=== PATIENT | female | born 1970 | race Caucasian/White ===

== ENCOUNTER 2020-04-28 13:51 | Outpatient (CLI) | payer BC, SELFPAY ==
--- NOTE | ~2020-04-28 | MM_ITS ---
EXAMINATION: MM screening padilla BI w farideh HISTORY: Screening mammogram TECHNIQUE: Craniocaudal and mediolateral oblique 3-D tomosynthesis images were obtained and synthetic 2-D images were generated. CAD analysis was submitted and interpreted. COMPARISON: 04/23/2019 bilateral digital screening mammogram 12/20/2017 diagnostic right digital mammogram 12/14/2017, 12/11/2016 bilateral digital screening mammogram examinations BREAST PARENCHYMAL COMPOSITION: There are scattered areas of fibroglandular density. FINDINGS: There is no evidence of suspicious mass, calcification, or architectural distortion to sugg est malignancy in either breast. There has been no suspicious interval change. IMPRESSION: 1. No mammographic evidence of malignancy. 2. Recommend routine screening mammography in one year. BI-RADS Category 1: Negative Reviewed, dictated and finalized at location A.
== END 2020-04-28 13:52 | disposition home or self-care (01) ==
LOC: ANHIMG 14:01
PROVIDERS: PCP Internal Medicine
DX: Z12.31 Encounter for screening mammogram for malignant neoplasm of breast (principal)
CPT/HCPCS: 77063; 77067

== ENCOUNTER 2022-04-28 13:33 | Observation (INO) | payer BC, SELFPAY ==
[2022-04-28] VITALS (11 sets, daily range): BP systolic 124–154; BP diastolic 71–92; PULSE 63–88; RESP 16–20; TEMP 36.4–37; O2SAT 98–100; BMI 39.6
[2022-04-28 14:00] LABS: Basophils Absolute Auto 0.1 K/mm3 (0.0-0.1); Basophils Percent Auto 1.2 % (0.2-1.2); Eosinophils Absolute Auto 0.3 K/mm3 (0-0.3); Eosinophils Percent Auto 3.2 % (0-4.4); Hematocrit 27.2 % (37.0-47.0); Immature Granulocyte Absolute 0.06 K/mm3 (0.00-0.031); Immature Granulocyte Percent A 0.8 % (0-0.5); Lymphocytes Absolute Auto 2.16 K/mm3 (0.9-3.2); Lymphocytes Percent Auto 27.8 % (18.3-44.2); Mean Corpuscular HGB Conc 25.4 g/dl (32-36); Mean Corpuscular Hemoglobin 18.4 pg (26-34); Mean Corpuscular Volume 72.5 fl (80-100); Monocytes Absolute Auto 0.9 K/mm3 (0.1-0.6); Neutrophils Absolute Auto 4.4 K/mm3 (1.3-6.7); Nucleated Red Blood Cells Perc 0.4 % (0.0-0.2); Platelet Count Result 608 k/mm3 (150-375); Red Blood Count 3.75 M/mm3 (4.2-5.4); Red Cell Distribution Width 23.2 % (11.5-14.5); White Blood Count 7.8 K/mm3 (4.5-10.0)
[2022-04-28 14:09] LABS: Hemoglobin 6.9 g/dL (12.0-15.0)
[2022-04-28 14:22] LABS: Partial Thromboplastin Time 24.7 SECONDS (22.3-36.8); Prothrombin Time 13.2 Seconds (11.1-14.7)
[2022-04-28 14:24] LABS: Alanine Aminotransferase 22 U/L (6-35); Albumin Level 4.6 g/dL (3.5-5.1); Alkaline Phosphatase 101 U/L (38-126); Anion Gap 14 mmol/L (8-16); Aspartate Amino Transferase 30 U/L (14-36); Bilirubin,Total 0.5 mg/dL (0.2-1.3); Blood Urea Nitrogen 9 mg/dL (7-17); Calcium 9.7 mg/dL (8.4-10.2); Carbon Dioxide 22 mmol/L (22-30); Chloride 98 mmol/L (98-107); Estimated CRCL calculation 90 ml/min; Estimated Glomerular Filt Rate > 60; Glucose 114 mg/dL (65-110); Potassium 3.4 mmol/L (3.4-5.0); Sodium 134 mmol/L (137-145)
[2022-04-28 14:27] LABS: Large Platelets Present; Platelet Estimate Increased (Adequate)
[2022-04-28 14:31] LABS: Anisocytosis 2+ (NORMAL); Microcytosis 1+ (NORMAL)
[2022-04-28 14:32] LABS: Hypochromasia 2+ (NORMAL); Macrocytosis 1+ (NORMAL); Stomatocytes 2+ (NORMAL)
--- NOTE | 2022-04-28 14:45 | ECG_ITS ---
Measurements Intervals [place] Rate: 77 P: -5 OK: 150 QRS: -23 QRSD: 86 T: 5 QT: 396 QTc: 448 Interpretive Statements SINUS RHYTHM INCOMPLETE RIGHT BUNDLE BRANCH BLOCK LOW QRS VOLTAGE IN PRECORDIAL LEADS BORDERLINE T WAVE ABNORMALITY- ANT/INF LEADS BASELINE ARTIFACT- I, II, III, AVR, AVL, AVF, V4-V6 BORDERLINE ECG NO PREVIOUS ECG AVAILABLE FOR COMPARISON Electronically Signed On 04-28-2022 21:26:19 CDT by Eyad Oconnor D.O.
[2022-04-28 15:04] LABS: Magnesium 1.9 mg/dL (1.6-2.3)
--- NOTE | 2022-04-28 15:05 | ED.RECABL ---
HPI - Recheck/Abnormal Lab/Rx General Chief Complaint: Recheck/Abnormal Lab/Rx Stated Complaint: LOW HEMOGLOBIN Time Seen by Provider: 04/28/22 14:28 Source: patient and RN notes reviewed Mode of arrival: ambulatory Limitations: no limitations History of Present Illness HPI narrative: This is a 52 year old female with history of anemia who presents for evaluation of low hemoglobin. She reports several years ago she had heavy menses and she required blood transfusion due to anemia. She was evaluated by lithographer apprentice and oncology. She was told she has iron deficiency and she had a procedure to stop her menstrual cycle. She states she has not had a period in 2 years. SHe had outpatien labs ordered in January for palpitations and shortness of breath, but she did not get labs done until 3 days ago. Her hemoglobin 3 days ago was 6.9 so she came to ER for reassessment. She denies any melena, rectal bleeding, epistaxis, abnormal bruising. She has generalized weakness. Related Data Allergies Allergy/AdvReac Type Severity Reaction Status Date / Time iohexol Allergy Hives Verified 04/28/22 13:34 [From contrast - CT, X-RAY] Review of Systems Review of Systems: All systems reviewed & are unremarkable except as noted in HPI and below Constitutional: Constitutional: Denies chills, Reports fatigue and Denies fever(s) Cardiovascular: Cardiovascular: Denies chest pain and Reports rapid heart rate Respiratory: Respiratory: Denies chest congestion, Denies cough and Reports dyspnea Gastrointestinal: Gastrointestinal: Reports abdominal pain, Reports nausea and Reports vomiting Musculoskeletal: Musculoskeletal: Denies back pain Neurologic: Reports weakness PMFSH Past Medical History Medical History (Updated 04/28/22 @ 17:38 by Marylou Keen MD) Anemia Hypertension Surgical History Surgical History (Updated 04/28/22 @ 17:00 by Maia Sierra NP) H/O section x 3 H/O hernia repair History of laparoscopic cholecystectomy History of removal of pigmented skin lesion History of tonsillectomy and adenoidectomy Family History Family History (Updated 04/28/22 @ 17:00 by Maia Sierra NP) Father Heart disease Hypertension Kidney disease Social History Social History (Updated 04/28/22 @ 17:01 by Maia Sierra NP) Social History: maried 3 c mj drink Smoking status: Never smoker Exam Const: General: alert Nutritional Appearance: well nourished and obese Orientation/consciousness: patient oriented x3 Limitations: no limitations HENMT: Face and sinus: normal facial exam Teeth and gingiva: dentition normal Chest: Chest palpation & inspection: normal inspection of the chest Resp: Effort & Inspection: normal respiratory effort Auscultation: clear to auscultation bilaterally Cardio: Rate: regular rate Rhythm: regular rhythm GI: GI Palp: Yes Soft to palpation, No Tenderness to palpation present (GI) and No Guarding due to palpation present (GI) Auscultation: normal bowel sounds Other: heme negative stool Back/Spine/Pelvis: Back: no CVA tenderness Skin: General skin exam: pallor Wounds: no wounds Neuro: General: patient oriented x3, moves all extremities and CN's II-XI intact bilaterally Extrem: General: normal to inspection Psych: Mental Status: mental status grossly normal Affect: normal affect Attitude: cooperative Course Reevaluation(s) Reevaluation #1: PAtient presents with symptomatic anemia. No active bleeding found. I Discussed with hospitalist who agrees to consult. Date: 04/28/22 Time: 15:00 Vital Signs Vital signs: Vital Signs Temperature 97.5 F L 04/28/22 13:35 Pulse Rate 88 04/28/22 13:35 Respiratory Rate 16 04/28/22 13:35 Blood Pressure 154/92 H 04/28/22 13:35 Pulse Oximetry 100 04/28/22 13:35 Oxygen Delivery Room Air 04/28/22 13:35 Temperature 97.5 F L 04/28/22 13:35 Pulse Rate 75 04/28/22 17:26 Respiratory Rate 1
[2022-04-28 15:11] LABS: Iron 18 ug/dL (37-170)
[2022-04-28 15:13] LABS: NT Pro B Type Natriuretic Pept 117 pg/mL (5-100)
[2022-04-28 15:14] LABS: Troponin I < 0.012 ng/mL (0.000-0.034)
[2022-04-28 15:20] LABS: Percent Iron Saturation 3 % (20-50)
[2022-04-28 16:11] LABS: Folic Acid 8.9 ng/mL (2.76->20)
[2022-04-28 16:44] LABS: SARS-CoV-2 RNA PCR Negative
--- NOTE | 2022-04-28 16:58 | PM.IMHP ---
H&P: HPI History of Present Illness Date/Time: 04/28/22 16:58 Chief Complaint: Low hemoglobin Narrative: This is a 52-year-old female patient who has a history of having iron deficiency anemia. The patient stated she has not been taking her iron supplements daily. The patient stated that many years ago she had heavy menses and she required a blood transfusion due to the anemia. She was evaluated by Gynecology and Oncology in the past. The patient recently started taking her iron pills as of yesterday. The patient did go to her primary care doctor and had labs ordered back in January but it did not get them performed. She was complaining of shortness of breath and palpitations at this point. She did have her labs performed about 3 days ago. Her hemoglobin 3 days ago was 6.9 so she came to ER for review. She denies any melena rectal bleeding epistaxis or abnormal bruising. She does have generalized weakness. The patient was given IV Tylenol and IV fluids in the emergency room. She is being admitted to observation status on the date of service of 04/28/2022. Review of Systems Review of Systems: See HPI All systems reviewed & are unremarkable except as noted in HPI and below Constitutional: Constitutional: Reports as per HPI and Reports no additional constitutional complaints Eyes: Eyes: Reports as per HPI and Reports no additional eye complaints ENT: Reports system reviewed and no additional complaints, except as documented and Reports Normal hearing present Cardiovascular: Cardiovascular: Reports no additional cardiovascular complaints Respiratory: Respiratory: Reports no additional respiratory complaints and Reports no additional respiratory complaints Gastrointestinal: Gastrointestinal: Reports as per HPI and Reports no additional gastrointestinal complaints Musculoskeletal: Musculoskeletal: Reports no additional musculoskeletal complaints Integumentary/Breasts: Skin/Breast: Reports system reviewed and no additional complaints, except as docu and Reports as per HPI Neurologic: Reports system reviewed and no additional complaints, except as documented, Reports as per HPI and Reports Normal hearing present Psychiatric: Psychiatric: Reports no additional psychiatric complaints and Reports as per HPI Endocrine: Endocrine: Reports no additional endocrine complaints Hematologic/Lymphatic: Hematologic/Lymphatic: Reports no additional hematologic/lymphatic complaints Allergic/Immunologic: Allergic/Immunologic: Reports no additional allergic/immunologic complaints [facility] Past Medical History Medical History Anemia Depression with anxiety Hypertension Surgical History Surgical History H/O section x 3 H/O hernia repair History of laparoscopic cholecystectomy History of removal of pigmented skin lesion History of tonsillectomy and adenoidectomy Family History Family History Father Heart disease Hypertension Kidney disease Social History Social History (Updated 04/28/22 @ 19:06 by Maia Sierra NP) Social History: The patient is with 3 children. She does occasionally use marijuana and occasionally drinks alcohol but is a lifelong nonsmoker. She is not employed at this time. Her is her durable power state's attorney for healthcare. Code status full code Smoking status: Never smoker Alcohol intake: current Drinks per week: 20 Substance use: current Substance use type: marijuana Last use: 04/27/22 Spiritual care concerns: No Meds Home Medications and Allergies Home Medications Medication Instructions Recorded Confirmed Type citalopram 40 mg tablet 40 mg PO DAILY 04/28/22 04/28/22 History cyclobenzaprine 5 mg tablet 5 mg PO DAILY PRN Muscle Spasm 04/28/22 04/28/22 History hydrochlorothiazide 25 mg tab
--- NOTE | 2022-04-28 17:49 | PC.NURSE ---
This patient, Carlee Augustin, was admitted to Medical Room 261-01. Patient/family oriented to hospital policies and general routines including ID bracelet, bed and alarms, visiting hours, pain management, procedures, bathroom and other care routines, personal items, smoking policy, room service/diet, and visiting hours. Information on how to activate the Rapid Response Team has been discussed. Patient/Family are encouraged to report perceived risks to care and to ask questions if they do not understand what they are told or what they should do.
[2022-04-28] MEDS: SODIUM CHLORIDE 0.9% IV 250 ML 30 ML IV CONT (18:00)
[2022-04-28 20:47] LABS: Bilirubin,Total 0.4 mg/dL (0.2-1.3); Lactate Dehydrogenase 222 U/L (120-246)
[2022-04-28 20:55] LABS: Transferrin 467 mg/dL (206-381)
[2022-04-28 21:23] LABS: Ferritin 3.63 ng/mL (11.1-264)
[2022-04-28] MEDS: IRON SUCROSE COMPLEX 100 MG in SODIUM CHLORIDE 0.9% IV 50 ML 220 MG IVPB (22:26)
[2022-04-28 23:56] LABS: Appearance Urine Clear (Clear); Bilirubin Urine Negative (Negative); Blood Urine Negative (Negative); Color Urine Yellow (Yellow); Glucose Urine UA Negative (Negative); Ketones Urine Negative (Negative); Leukocyte Esterase Ur Negative LEU/UL (NEGATIVE); Nitrate Urine Negative (Negative); Protein Urine Negative (Negative); Specific Grav Ur <= 1.005 (1.001-1.035); Urobilinogen Urine 0.2 mg/dL (<2.0)
[2022-04-28 23:58] LABS: Add Urine Microscopic? NO
[2022-04-29 00:38] VITALS: BP 127/82; PULSE 72; RESP 16; TEMP 36.6; O2SAT 98
[2022-04-29] MEDS: CYCLOBENZAPRINE HCL 5 MG TABLET PO (01:01)
[2022-04-29 01:38] VITALS: BP 149/92; PULSE 66; RESP 16; TEMP 36.9; O2SAT 100
[2022-04-29 02:15] VITALS: BP 137/83; PULSE 74; RESP 16; TEMP 36.4; O2SAT 97
[2022-04-29] MEDS: MELATONIN 5 MG TABLET 10 MG PO ×2 (02:34→22:41)
[2022-04-29 05:53] LABS: Basophils Absolute Auto 0.1 K/mm3 (0.0-0.1); Basophils Percent Auto 1.2 % (0.2-1.2); Eosinophils Absolute Auto 0.3 K/mm3 (0-0.3); Eosinophils Percent Auto 4.1 % (0-4.4); Hematocrit 31.9 % (37.0-47.0); Hemoglobin 8.9 g/dL (12.0-15.0); Immature Granulocyte Absolute 0.05 K/mm3 (0.00-0.031); Immature Granulocyte Percent A 0.6 % (0-0.5); Immature Reticulocyte Fraction 43.9 % (3.0-15.9); Lymphocytes Absolute Auto 2.24 K/mm3 (0.9-3.2); Lymphocytes Percent Auto 28.8 % (18.3-44.2); Mean Corpuscular HGB Conc 27.9 g/dl (32-36); Mean Corpuscular Hemoglobin 20.3 pg (26-34); Mean Corpuscular Volume 72.8 fl (80-100); Monocytes Absolute Auto 0.9 K/mm3 (0.1-0.6); Monocytes Percent Auto 11.8 % (2.6-8.5); Neutrophils Absolute Auto 4.2 K/mm3 (1.3-6.7); Neutrophils Percent Auto 53.5 % (45.5-73.1); Nucleated Red Blood Cells Absolute Auto 0.1 K/mm3 (0.0-0.012); Nucleated Red Blood Cells Perc 0.6 % (0.0-0.2); Platelet Count Result 609 k/mm3 (150-375); Red Blood Count 4.38 M/mm3 (4.2-5.4); Red Cell Distribution Width 22.6 % (11.5-14.5); Reticulocyte Hemoglobin Conten 16.7 pg (28.2-35.7); Reticulocyte Percent 1.37 % (0.7-4.3); Reticulocytes Absolute 0.06 B/L (32.2-175.7); White Blood Count 7.8 K/mm3 (4.5-10.0)
[2022-04-29 06:00] VITALS: BP 148/83; PULSE 72; RESP 20; TEMP 36.6; O2SAT 98
[2022-04-29 06:07] LABS: Lactic Acid Reflex 0.7 mmol/L (0.7-2.0)
[2022-04-29 06:14] LABS: Alanine Aminotransferase 19 U/L (6-35); Albumin Level 4.5 g/dL (3.5-5.1); Alkaline Phosphatase 85 U/L (38-126); Anion Gap 13 mmol/L (8-16); Aspartate Amino Transferase 26 U/L (14-36); Bilirubin,Total 2.2 mg/dL (0.2-1.3); Blood Urea Nitrogen 7 mg/dL (7-17); CRP 0.6 mg/dL (<1.0); Calcium 9.1 mg/dL (8.4-10.2); Carbon Dioxide 27 mmol/L (22-30); Chloride 97 mmol/L (98-107); Estimated CRCL calculation 101 ml/min; Estimated Glomerular Filt Rate > 60; Glucose 93 mg/dL (65-110); Magnesium 2.1 mg/dL (1.6-2.3); Potassium 2.9 mmol/L (3.4-5.0); Sodium 137 mmol/L (137-145)
[2022-04-29 07:19] LABS: Anisocytosis 2+ (NORMAL); Hypochromasia 1+ (NORMAL); Platelet Estimate Increased (Adequate); Poikilocytosis 1+ (NORMAL)
[2022-04-29] MEDS: IRON SUCROSE COMPLEX 200 MG in SODIUM CHLORIDE 0.9% IV 50 ML 120 MG IVPB (08:30)
[2022-04-29] MEDS: FERROUS SULFATE 324 MG TABLET PO ×2 (08:31→17:52)
[2022-04-29] MEDS: POTASSIUM CHLORIDE 20 MEQ TABLET 40 MEQ PO (08:31)
[2022-04-29] MEDS: CITALOPRAM HYDROBROMIDE 20 MG TABLET 40 MG PO (08:32)
[2022-04-29] MEDS: LOSARTAN POTASSIUM 100 MG TABLET PO (08:33)
[2022-04-29] MEDS: POTASSIUM CHLORIDE INJ 40 MEQ in SODIUM CHLORIDE 0.9% IV 500 ML 130 MEQ IVPB (09:46)
--- NOTE | 2022-04-29 12:15 | PM.IMPN ---
Progress Note: A&P Assessment and Plan (1) Iron deficiency anemia: Code(s): D50.9 - Iron deficiency anemia, unspecified Status: Acute Assessment and Plan: -Hemoglobin is 6.9 hematocrit 27.2 upon admission and symptomatic with shortness of breath and weakness -iron infusion repeated one more time -p.o. Iron switched to 324mg BID -hematology consult greatly be appreciated. -H&H Q6H hours. -type and crossmatch and infuse 1 unit of blood 04/28/22. -anemia panel Iron 18, TIBC 623, % sat 3, Transferrin 467, Ferritin 3.63, B12 376, Folate 8.9 -check stool for occult blood. (2) Thrombocythemia: Code(s): D75.839 - Thrombocytosis, unspecified Status: Acute Assessment and Plan: Plt 609 today Could be related to low iron, related to anemia Iron is 18 and ferritin is 3.63 Get LDH and ESR to rule out inflammatory causes Continue to trend labs Hematology on board (3) Hypokalemia: Code(s): E87.6 - Hypokalemia Status: Acute Assessment and Plan: - K today was 2.9 - 40mcg PO and 40mcg IV - Repeat potassium one post infusion - Supplement as indicated - trend labs - Adjust therapy as indicated - Hold HCTZ at this time as this could be contributing to her potassium loss, probably need to decrease to 12.5 (4) Hypertension: Code(s): I10 - Essential (primary) hypertension Status: Acute Assessment and Plan: -BP 148/83 -Continue losartan 100mg PO daily -Hold HCTZ for now -Trend blood pressure -Adjust therapy as indicated (5) Depression with anxiety: Code(s): F41.8 - Other specified anxiety disorders Status: Acute Assessment and Plan: -continue with citalopram -Add Xanax for significant night anxiety Time Spent With Patient Time with patient: Greater than 35 minutes Subjective Date/time seen: 04/29/22 12:15 Interval history: 04/29/22 1215 Patient states she is doing okay today. She is having some watery diarrhea. She stated that it is darker than normal however she denies having red, maroon, black diarrhea. She denies any chest pain or shortness of breath. She did state that she was very anxious and that she feels like she is going to jump out of her skin. She has been get up and down and walking to the bathroom. 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 K was 2.9 today. Seems that [facility]. Will hold that for now. 04/28/22? 16:58 This is a 52-year-old female patient who has a history of having iron deficiency anemia.? The patient stated she has not been taking her iron supplements daily.? The patient stated that many years ago she had heavy menses and she required a blood transfusion due to the anemia.? She was evaluated by Gynecology and Oncology in the past.? The patient recently started taking her iron pills as of yesterday.? The patient did go to her primary care doctor and had labs ordered back in January but it did not get them performed.? She was complaining of shortness of breath and palpitations at this point.? She did have her labs performed about 3 days ago.? Her hemoglobin 3 days ago was 6.9 so she came to ER for review.? She denies any melena rectal bleeding epistaxis or abnormal bruising.? She does have generalized weakness.? The patient was given IV Tylenol and IV fluids in the emergency room.? She is being admitted to observation status on the date of service of 04/28/2022. Review of Systems Review of Systems: All systems reviewed & are unremarkable except as noted in HPI and below Exam Const: General: cooperative, healthy appearing, comfortable, no acute distress, well developed, alert, awake and Physically active Nutritional Appearance: average body habitus and well nourished Orientation/consciousness: oriented to person, oriented to place, oriented to time and pat
[2022-04-29 13:42] LABS: Hematocrit 31.2 % (37.0-47.0); Hemoglobin 8.7 g/dL (12.0-15.0)
[2022-04-29 14:31] VITALS: BP 127/67; PULSE 78; RESP 18; TEMP 36.4; O2SAT 97
[2022-04-29 15:40] LABS: IFOB Positive Control Positive; Immunochemical Fecal Occult Bl Negative (N)
[2022-04-29 15:57] LABS: Potassium 4.5 mmol/L (3.4-5.0)
[2022-04-29 19:28] VITALS: BP 143/84; PULSE 73; RESP 18; TEMP 36.6; O2SAT 98
[2022-04-30 05:29] LABS: Basophils Absolute Auto 0.1 K/mm3 (0.0-0.1); Basophils Percent Auto 1.4 % (0.2-1.2); Eosinophils Absolute Auto 0.3 K/mm3 (0-0.3); Eosinophils Percent Auto 3.9 % (0-4.4); Hematocrit 31.1 % (37.0-47.0); Hemoglobin 8.3 g/dL (12.0-15.0); Immature Granulocyte Absolute 0.05 K/mm3 (0.00-0.031); Immature Granulocyte Percent A 0.6 % (0-0.5); Lymphocytes Absolute Auto 2.47 K/mm3 (0.9-3.2); Lymphocytes Percent Auto 31.5 % (18.3-44.2); Mean Corpuscular HGB Conc 26.7 g/dl (32-36); Mean Corpuscular Volume 75.1 fl (80-100); Monocytes Percent Auto 12.1 % (2.6-8.5); Neutrophils Percent Auto 50.5 % (45.5-73.1); Nucleated Red Blood Cells Perc 0.3 % (0.0-0.2); Platelet Count Result 655 k/mm3 (150-375); Red Blood Count 4.14 M/mm3 (4.2-5.4); Red Cell Distribution Width 22.9 % (11.5-14.5); White Blood Count 7.9 K/mm3 (4.5-10.0)
[2022-04-30 05:39] LABS: Alanine Aminotransferase 17 U/L (6-35); Albumin Level 3.7 g/dL (3.5-5.1); Alkaline Phosphatase 71 U/L (38-126); Anion Gap 10 mmol/L (8-16); Aspartate Amino Transferase 23 U/L (14-36); Bilirubin,Total 0.4 mg/dL (0.2-1.3); Blood Urea Nitrogen 7 mg/dL (7-17); Calcium 8.5 mg/dL (8.4-10.2); Carbon Dioxide 27 mmol/L (22-30); Chloride 103 mmol/L (98-107); Estimated CRCL calculation 101 ml/min; Estimated Glomerular Filt Rate > 60; Glucose 93 mg/dL (65-110); Magnesium 2.2 mg/dL (1.6-2.3); Potassium 3.8 mmol/L (3.4-5.0); Sodium 140 mmol/L (137-145)
[2022-04-30 05:48] VITALS: BP 128/67; PULSE 65; RESP 18; TEMP 36.8; O2SAT 99
[2022-04-30] MEDS: LOSARTAN POTASSIUM 100 MG TABLET PO (08:17)
[2022-04-30] MEDS: CITALOPRAM HYDROBROMIDE 20 MG TABLET 40 MG PO (08:17)
[2022-04-30] MEDS: FERROUS SULFATE 324 MG TABLET PO (08:17)
[2022-04-30 09:13] LABS: Erythrocyte Sedimentation Rate 12 mm/hr (0-20)
--- NOTE | 2022-04-30 09:30 | PM.DS ---
DS: Admitting Diagnosis Discharge Date 04/30/22929 Admitting Diagnosis Iron deficiency anemia DS: Summary Hospital Course Hospital Course: Patient is a 52-year-old female with past medical history of hypertension, iron deficiency anemia, anxiety and depression who presented to the ED with complaints of low hemoglobin. She recently had labs done and her hemoglobin was 6.9. She denied any melena or abnormal bleeding. Patient has chronic iron deficiency and had stopped taking her iron supplementation at home. Upon arrival to the ED hemoglobin was 6.9 with hematocrit of 27.2. Patient was symptomatic with shortness of breath and weakness. Patient received iron infusions x2 and p.o. iron was continued. Hemoglobin hematocrit had been on trend every 6 hours. Patient was given 1 unit of blood and hemoglobin and hematocrit increased and is currently 8.3/31.1. Occult blood and was negative. Anemia panel did show an iron of 18, % saturation of 3, TIBC 623, transferrin 467, ferritin 3.63, B12 376, folate 8.9. Patient is also noted to have an elevated platelet count that is in the 600s. Currently a platelet count of 655. LDH and ESR were normal. Patient was also noted to have low potassium of 2.9. Potassium supplementation was given. Patient is at risk for hypokalemia due to hydrochlorothiazide. Blood pressures have been on trend and monitored. Currently patient is stable and is ready to go home. She denies any chest pain, shortness of breath, nausea, vomiting, diarrhea, constipation, weakness or fatigue. Hematology has been consulted however will have patient follow up outpatient. Patient is stable for discharge for labs and vital signs at this time. Education has been given about close follow-up. Case review with Dr. Whitten, who suggested discontinuing HCTZ and iron daily Status at Discharge Functional status at discharge: independent ambulation Overall status at discharge: patient is progressing back to baseline Time Spent with Patient Time attestation: Total time spent providing and/or coordinating discharge services: 36 minutes Time spent: Greater than 30 minutes Specific discharge activities: Diagnostic testing, chart review, developing a treatment plan, education, care coordination documentation, physical exam, result review Exam Narrative: Const:?? General: cooperati ve, healthy appear ing, comfortable, no acute distress, well developed, a lert, awake and Ph ysically active? N utritional Appeara nce: average body habitus and well n ourished? Orientat ion/consciousness: oriented to perso n, oriented to idania ce, oriented to ti me and patient saul ented x3? Limitati ons: no limitation s HENMT:?? Head: normal to in spection, No palpa ble skull fracture present, normocep halic and atraumat ic? Ears: hearing grossly normal toribio aterally and exter nal ears normal? G eneral nose exam: Normal external no se present and Nor mal nares present Eyes:?? General: appearanc e normal, both eye s and all related structures? Alignm ent and Position: alignment normal? Periorbital: perio rbital findings no rmal? Eyelids: eye lids normal? Scl
[2022-05-02 20:03] LABS: Haptoglobin 149 mg/dL (43-212)
[2022-05-02 20:04] LABS: Albumin 3.8 g/dL (3.8-4.8); Alpha 1 Globulin 0.4 g/dL (0.2-0.3); Alpha 2 Globulin 0.7 g/dL (0.5-0.9); Beta 1 Globulin 0.6 g/dL (0.4-0.6); Gamma Globulin 0.9 g/dL (0.8-1.7); Protein, Total 6.7 g/dL (6.1-8.1)
[2022-05-03 17:19] LABS: Soluble Transferrin Receptor 6.28 mg/L (0.76-1.76)
== END 2022-04-30 13:22 | disposition home or self-care (01) ==
LOC: ANHED 14:56 → ANH2MED 17:38
PROVIDERS: Emergency Medicine; Internal Medicine; Nurse Practitioner; Admitting Provider Internal Medicine; Emergency Provider General Practice; PCP Internal Medicine; Visit Provider Nurse Practitioner
DX: D50.9 Iron deficiency anemia, unspecified (principal); D75.839 Thrombocytosis, unspecified; E87.6 Hypokalemia; I10 Essential (primary) hypertension; F41.8 Other specified anxiety disorders; R10.9 Unspecified abdominal pain; R19.7 Diarrhea, unspecified; I45.10 Unspecified right bundle-branch block; R11.2 Nausea with vomiting, unspecified; R06.02 Shortness of breath; Z20.822 Contact with and (suspected) exposure to COVID-19; F12.90 Cannabis use, unspecified, uncomplicated; Z72.89 Other problems related to lifestyle; Z79.899 Other long term (current) drug therapy; Z82.49 Family history of ischemic heart disease and other diseases of the circulatory system
CPT/HCPCS: 36415; 36430; 80053; 81003; 82247; 82248; 82274; 82570; 82607; 82728; 82746; 83010; 83540; 83550; 83605; 83615; 83735; 83880; 84132; 84155; 84156; 84165; 84166; 84238; 84443; 84466; 84484; 85014; 85018; 85025; 85046; 85610; 85652; 85730; 86140; 86850; 86880; 86900; 86901; 86902; 86922; 93005; 96365; 96366; 96367; 99285; A9270; C9803; G0378; J1756; J3480; J7040; J7050; P9016; U0003; U0005

== ENCOUNTER 2022-05-31 08:52 | Outpatient (CLI) | payer BC, SELFPAY ==
--- NOTE | ~2022-05-31 | MM_ITS ---
EXAMINATION: MM screening padilla BI w farideh HISTORY: Screening TECHNIQUE: Craniocaudal and mediolateral oblique 3-D tomosynthesis images were obtained and synthetic 2-D images were generated. CAD analysis was submitted and interpreted. COMPARISON: Comparison to multiple prior studies sequentially, with oldest reviewed study dated 03/2016. BREAST PARENCHYMAL COMPOSITION: The breasts are almost entirely fatty. FINDINGS: There is no evidence of suspicious mass, calcification, or architectural distortion to sugg est malignancy in either breast. There has been no suspicious interval change. IMPRESSION: 1. No mammographic evidence of malignancy. 2. Recommend routine screening mammography in one year. Reviewed, dictated and finalized at location A.
== END 2022-05-31 08:53 | disposition home or self-care (01) ==
PROVIDERS: PCP Internal Medicine; Visit Provider Internal Medicine
DX: Z12.31 Encounter for screening mammogram for malignant neoplasm of breast (principal)
CPT/HCPCS: 77063; 77067

== ENCOUNTER 2023-12-24 13:14 | Outpatient (CLI) | payer BC, SELFPAY ==
--- NOTE | ~2023-12-24 | MM_ITS ---
EXAMINATION: MM screening padilla BI w farideh HISTORY: Screening mammogram TECHNIQUE: Craniocaudal and mediolateral oblique 3-D tomosynthesis images were obtained and synthetic 2-D images were generated. CAD analysis was submitted and interpreted. COMPARISON: 05/31/2022, 04/28/2020 bilateral screening mammogram examinations BREAST PARENCHYMAL COMPOSITION: The breasts are almost entirely fatty. FINDINGS: There is no evidence of suspicious mass, calcification, or architectural distortion to sugg est malignancy in either breast. There has been no suspicious interval change. IMPRESSION: 1. No mammographic evidence of malignancy. 2. Recommend routine screening mammography in one year. BI-RADS Category 1: Negative Reviewed, dictated and finalized at location A.
== END 2023-12-24 13:15 ==
LOC: MICIMG 13:15
DX: Z12.31 Encounter for screening mammogram for malignant neoplasm of breast (principal)
CPT/HCPCS: 77063; 77067

== ENCOUNTER 2024-07-11 08:49 | Outpatient (CLI) | payer BC, SELFPAY ==
--- NOTE | ~2024-07-11 | MR_ITS ---
EXAMINATION: MR ankle LT wo con DATE: 07/11/2024 09:16 INDICATION: Left ankle pain TECHNIQUE: Magnetic resonance imaging (MRI) of the left ankle was performed without intravenous contr ast. Sequences included sagittal, coronal, and axial proton-density weighted fast spin echo without a nd with fat saturation. COMPARISON: None. FINDINGS: Medial ankle ligaments: There is loss of the normally: Delineated striated pattern of the deep deltoid ligament which appears thickened with more amorphous intermediate signal consistent with chronic scarring related to chroni c sprain. There is mild hypertrophic change along the inferolateral margin of the medial malleolus wh ich suggests chronic healing response to periosteal stripping along the tibial origin of the superfic ial deltoid ligament related to chronic sprain. The superficial deltoid ligament and superomedial com ponent of the spring ligament complex is markedly thickened consistent with scarring related to chron ic sprain. There is mild edema overlying the superficial deltoid ligament which suggests recent recur rent sprain. Lateral ankle ligaments: The anterior and posterior inferior tibiofibular ligaments and the posterior talofibular ligament are normal. Chronic high-grade sprain of the anterior talofibular ligament which appears attenuated and frayed along the fibular side of the ligament which appears detached from its anterior lateral malleo lar attachment. Similarly there is a chronic tear of the fibular side of the calcaneofibular ligament which similarly appears attenuated and lax. Tendons: Moderate tendinosis of the distal Achilles tendon without tear and with small enthesopathic ossicle a t its lateral calcaneal insertion. The peroneus longus and brevis tendons are normal. The tibialis an terior and extensor hallucis longus and extensor digitorum longus tendons are normal. The tibialis po sterior, flexor digitorum longus and flexor hallucis longus tendons are normal. Plantar fascia: Plantar aponeurosis is normal. Bones/other: The foot is rotated towards and with inversion which may be positional. No traumatic malalignment. Mi ld peripheral edema along the medial malleolus likely related to the suspected recent medial ankle sp rain. Marrow signal is otherwise unremarkable with no fracture or pathologic marrow replacing process . Mild osteoarthritis at the ankle and at the tarsal metatarsal joints. Fluid: Small tibiotalar and subtalar joint effusions with small amount of fluid correlating in the anterior recess of the ankle joint and in the recess anterior to the posterior facet of the subtalar joint. Sm all amount of fluid within a ganglion cyst arising from the dorsolateral aspect of the talonavicular joint. Small amount of fluid consistent with mild bursitis at the retrocalcaneal bursa consistent wit h mild bursitis. IMPRESSION: 1. Mild soft tissue edema and marrow edema along the margin of the medial malleolus with prominent sc arring of the deep and superficial deltoid ligament and superomedial component of the spring ligament complex consistent with likely acute on recurrent chronic medial ankle sprain. 2. Chronic high-grade partial if not complete tears of the anterior talofibular and calcaneofibular l igaments. 3. Moderate distal Achilles tendinosis without tear and with mild underlying retrocalcaneal bursitis. 4. Mild osteoarthritis at the ankle and tarsal metatarsal joints. Reviewed, dictated and finalized at location A. 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 Mild soft tissue edema and marrow edema along the margin of the medial malle olus with prominent scarring of the deep and superficial deltoid ligament and s uperomedial component of the spring ligament complex consistent with likely acu te on recurrent chronic medial ankle sprain. 2. Chronic high-grade partial if not complete tears of the anterior talofibular and calcaneofibular ligaments. 3. Moderate distal Achilles tendinosis without tear and with mild underlying re trocalcaneal bursitis. 4. Mild osteoarthritis at the ankle and tarsal metatarsal joints.
== END 2024-07-11 08:50 | disposition home or self-care (01) ==
LOC: MICIMG 08:49
PROVIDERS: PCP Podiatrist Foot & Ankle Surgery; Visit Provider Podiatrist Foot & Ankle Surgery
DX: M76.72 Peroneal tendinitis, left leg (principal); M76.62 Achilles tendinitis, left leg; S93.492A Sprain of other ligament of left ankle, initial encounter; M77.52 Other enthesopathy of left foot and ankle; M19.072 Primary osteoarthritis, left ankle and foot; X58.XXXA Exposure to other specified factors, initial encounter
CPT/HCPCS: 73721